=== PATIENT | male | born 1975 | race Caucasian/White ===

== ENCOUNTER 2016-12-05 23:40 | Emergency (ER) | payer BC ==
--- NOTE | 2016-12-10 08:22 | ER ---
ADMIT: 12/05/2016 RM/LOC: ER [facility] MR#: [id number] [address] [address] MARGARETH LO [address] [place] [address] Emergency Room Report SEX: M AGE: 41 : 1975 DATE: 12/05/2016 HISTORY OF PRESENT ILLNESS: A 41-year-old gentleman collapsed at work tonight. He states he started feeling dizzy, lightheaded and warmed and flushed, and then passed out while at work. He states he has had multiple episodes of this happening to him in the past. He admits to being a heavy alcohol drinker and had drank earlier on this day. He had not eaten all day. He denies any injury secondary to the fall, has no headache. He is feeling better. See T-sheet for remainder history and physical. CBC and CMP essentially within normal limits. EKG showed peaked T-waves; however, potassium is normal and CMP. His lipase was also normal. The patient is diagnosed with syncopal episode. He was placed on a 48-hour Holter monitor and instructed to follow up this week with Dr. Mckeon. DIAGNOSIS: Syncope. Star Abdi MD/ greyson JOB #: [id number] CC: Alexx Tineo MD, Attending Physician
== END 2016-12-06 01:20 | disposition home or self-care (01) ==
LOC: ER 23:40
DX: R55 Syncope and collapse (principal); F10.10 Alcohol abuse, uncomplicated

== ENCOUNTER 2017-01-04 23:33 | Emergency (ER) | payer BC ==
--- NOTE | 2017-01-06 04:09 | ER ---
ADMIT: 01/04/2017 RM/LOC: ER [facility] MR#: [id number] [address] [place], [place] [address] MARGARETH LO [address] [facility] [address] [place] [address] Emergency Room Report SEX: M AGE: 41 : 1975 DATE: 01/04/2017 TIME: 2333 hours. Please refer to my T-sheet for complete H and P. HISTORY OF PRESENT ILLNESS: Briefly, this patient is a 41-year-old, who was out in his car having trouble finding his keys, said he fell confused, the police were involved, ambulance came, picked him up, his vital signs were stable, but he just was not tracking quite well, he smelled of alcohol, he has a known history of chronic alcoholism. PHYSICAL EXAMINATION: VITAL SIGNS: Blood pressure 145/100, pulse 102, respirations 16, temp 97.2, saturation 98%. GENERAL: He is slightly anxious. HEENT: Grossly normal. LUNGS: Clear. HEART: Regular. ABDOMEN: Soft. SKIN: No rash. NEURO: He is slow, kind of confused, but nonfocal, smells of alcohol. EMERGENCY DEPARTMENT COURSE: CBC was normal. Chemistries normal. EtOH was 431. UA was normal. CT head was negative. We gave him a liter of normal saline bolus, Ativan 0.5 mg IV, thiamine 100 mg IM. He was improved. Police were in to evaluate. He will be discharged in the ER. Pending the plan with the police what they are going to do with him at this time. ASSESSMENT: 1. EtOH abuse/intoxicated. 2. Confusion secondary to EtOH abuse/intoxicated with a history of such. PLAN: Avoid alcohol. Fluids. Return if worse. Follow up with Dr. Garcia. rGegor Grijalva MD/ greyson JOB #: [id number] CC: Gregor Grijalva MD, Attending Physician
--- NOTE | 2017-01-11 12:42 | NUR ---
Received call from pt. Pt states he was just discharged from [facility]. Pt denies any needs or concerns at this time. He was at [facility] for detox.
== END 2017-01-05 01:30 | disposition home or self-care (01) ==
LOC: ER 23:33
DX: F10.129 Alcohol abuse with intoxication, unspecified (principal); F41.9 Anxiety disorder, unspecified; F32.9 Major depressive disorder, single episode, unspecified

== ENCOUNTER 2017-01-06 05:11 | Emergency (ER) | payer BC ==
--- NOTE | 2017-01-06 23:00 | ER ---
ADMIT: 01/06/2017 RM/LOC: ER [facility] MR#: [id number] [address] [facility] [address] [place], [place] [address] MARGARETH LO [address] [facility] [address] [place] [address] Emergency Room Report SEX: M AGE: 41 : 1975 DATE: 01/06/2017 TIME: 05 Please refer to my T-sheet for complete H and P. HISTORY OF PRESENT ILLNESS: Briefly, the patient is a 41-year-old, who was brought in for confusion, not acting himself at work, history of alcohol abuse. He was just seen here recently for a similar episode and his alcohol level was over 400. He states he has not drank for 4 hours. He has been at work. They thought he was not acting right, so they brought him in. He came in by ambulance. PHYSICAL EXAMINATION: VITAL SIGNS: Stable. GENERAL: No acute distress. HEENT: Grossly normal. LUNGS: Clear. HEART: Regular. ABDOMEN: Soft, nontender. SKIN: No rash. NEURO: He is alert, nonfocal, smells of alcohol. EMERGENCY DEPARTMENT COURSE: Gave him 1 L of normal saline bolus. His chemistries came back normal except potassium 3.4, CO2 of 21, AST 79. His alcohol level is 438. We will get him a cab ride home. He is alert and stable at this time. ASSESSMENT: 1. EtOH abuse. 2. Intoxicated, brought from work by ambulance. PLAN: Decrease his alcohol. Drink fluids. Outpatient rehab. Gregor Grijalva MD/ greyson JOB #: [id number] CC: Gregor Grijalva MD, Attending Physician
--- NOTE | 2017-01-09 13:33 | NUR ---
Received SAD person referral and pt triggered as a high ED user. Attempted to contact pt. No answer, voice mail message left.
--- NOTE | 2017-01-10 14:37 | NUR ---
Attempted to contact pt. No answer, voice mail message left.
== END 2017-01-06 06:40 | disposition home or self-care (01) ==
LOC: ER 05:11
DX: F10.129 Alcohol abuse with intoxication, unspecified (principal); F17.210 Nicotine dependence, cigarettes, uncomplicated

== ENCOUNTER 2017-01-24 00:34 | Emergency (ER) | payer BC ==
--- NOTE | 2017-01-24 06:53 | ER ---
ADMIT: 01/24/2017 RM/LOC: ER [facility] MR#: [id number] [address] 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 Denies any overt suicidal plan. Police did investigate, concur not an emergency police custody situation. The patient is obviously despondent because he is losing his job. Exam remarkable for obviously intoxicated male, otherwise cooperative. Denies overt suicidal plan. EtOH 381. Tox screen positive for benzodiazepine; negative for salicylate, acetaminophen. Follow up in [facility] or [facility] for further counseling. Keyshawn Roberts MD/ greyson JOB #: [id number] CC: Keyshawn Roberts MD, Attending Physician Konrad Medrano MD, Family Physician
--- NOTE | 2017-01-25 14:54 | NUR ---
Received SAD person referral. Attempted to contact pt. No answer, voice mail message left.
--- NOTE | 2017-01-26 12:24 | NUR ---
Attempted to contact pt. No answer, voice mail message left.
== END 2017-01-24 03:45 | disposition home or self-care (01) ==
LOC: ER 00:34
DX: F10.229 Alcohol dependence with intoxication, unspecified (principal); F13.20 Sedative, hypnotic or anxiolytic dependence, uncomplicated; R45.851 Suicidal ideations; F41.9 Anxiety disorder, unspecified; F32.9 Major depressive disorder, single episode, unspecified; F17.210 Nicotine dependence, cigarettes, uncomplicated; Z91.09 Other allergy status, other than to drugs and biological substances; Y90.8 Blood alcohol level of 240 mg/100 ml or more

== ENCOUNTER 2017-02-06 10:19 | Inpatient (IN) | payer BC, OTHER ==
[~2017-02-06] VITALS: Ht 175.3 cm; Wt 57.6 kg
--- NOTE | ~2017-02-06 | INDIVTXPLN ---
"PATIENT: MARGARETH LO | | [facility] UNIT #: [id number] | [address] AGE/SEX: 41 M : [birth year] | [address] | [place] [address] ADMIT/REG DATE: 02/06/17 | ROOM: A.[facility] LOC: ADTC | ADTC | Individualized Treatment Plan Date: 02/21/17 Problem Statement/Issue Identified: Client needs to learn how to make positive changes in his life, live a sober life, and find the gratitude and chloe in it. Goal: Client will learn about the changes and positivities of sobriety and recovery. Objectives/Activities to achieve goal: 1. Client is to complete the My Change Plan packet and process it with counselor. Due Date:03/01/17 Complete: Incomplete: 2. Client is to read and highlight all he can relate to in the Living with Sobriety pamphlet, and share what he learned from it with counselor. Due Date:03/02/17 Complete: Incomplete: 3. Client is to write out 10 things he found chloe in while in recovery, 10 things he's grateful for, and 10 things he hopes to get out of life while enjoying recovery, and process them with counselor. Due Date:03/02/17 Complete: Incomplete: Client signature Date Counselor signature Date Outcome/Measurement of Progress Towards Goal: Counselor's signature Date "
--- NOTE | ~2017-02-06 | TXPLANREV ---
"PATIENT: MARGARETH LO | | [facility] UNIT #: [id number] | [address] AGE/SEX: 41 M : [birth year] | [address] | [place] [phone] ADMIT/REG DATE: 02/06/17 | ROOM: A.[facility] LOC: ADTC | ADTC | Treatment Plan/Staffing Review Date: 02/21/17 Treatment plan was reviewed and determined appropriate as written: Yes Treatment plan was reviewed and the following changes/addition/deletions are necessary: Client is to continue working on treatment plan assignments. He is finishing up with Step 1, and will begin working on making positive changes in his life. Discharge plans were reviewed and determined appropriate as previously documented: No Discharge plans were reviewed and determined to be as follows: Client has an apartment, and is hoping to return to it, but he will benefit from going to sober living. 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 Other pertinent issues discussed during this staffing review include: None at this time. Staff Present: Wendi Schaeffer PRIMARY COUNSELOR: YENNIFER Hodges Client Signature Counselor Signature Date Time "
--- NOTE | ~2017-02-06 | INDIVTXPLN ---
"PATIENT: MARGARETH LO | | [facility] UNIT #: [id number] | [address] AGE/SEX: 41 M : 73 | [address] | [place] [address] ADMIT/REG DATE: 02/06/17 | ROOM: A.[facility] LOC: ADTC | ADTC | Individualized Treatment Plan Date: 02/13/17 Problem Statement/Issue Identified: Client continues to use alcohol &/or drugs despite ongoing negative consequences, and he needs to become familiar with basics of recovery as he is not new to treatment and Twelve Step Program, however he relapsed after having over a year of sobriety. Goal: Client will learn how to identify negative consequences and get back in touch with the basics of recovery. Objectives/Activities to achieve goal: 1. Client is to complete the How to Get Started packet, process it with counselor and selected pages in group. Due Date:02/18/17 Complete: Incomplete: 2. Client is to complete Step 1, process it with counselor and selected pages in group. Due Date:02/21/17 Complete: Incomplete: 3. Client is to get at least 5 names and numbers of men in recovery and share that list with counselor. Due Date:Ongoing Complete: Incomplete: Client signature Date Counselor signature Date Outcome/Measurement of Progress Towards Goal: Counselor's signature Date "
--- NOTE | ~2017-02-06 | RESCARESUM ---
"PATIENT: ALBERTO LO | | [facility] UNIT #: [id number] | [address] [facility] AGE/SEX: 41 M : 73 | [address] | [place] [phone] ADMIT/REG DATE: 02/06/17 | ROOM: [facility] LOC: ADTC | ADT | Summary of Residential Care Primary Counselor: Shi DE OLIVEIRA Date of Admission: 02/06/17 Date of Discharge: 03/06/17 Referral Source: [facility] Board Primary Care Provider Prior to Admission: Self Admitting Diagnosis: F10.20 Alcohol Use Disorder, Severe Discharge Diagnosis: Same Goals Achieved: The only goals achieved were the How to Get Started, Step 1, and he worked on making changes in his life. Continued Obstacles to Sobriety/Relapse Issues: Isolation, lack of motivation to do what is required to stay sober, not following rules and regulations of the [facility], not getting a job, not getting a sponsor, not attending AA meetings, not learning to work a program of recovery. Family Issues Addressed: Alberto and his parents were present for a family session, however, he was very quiet, and didn't share anything with them. Y Individual Therapy Y Group Therapy Y Educational Series on Substance Abuse Y Parents/Significant Others Attended Family Program N Acute Medical Problems During the Course of Treatment N Transferred to Hospital During the Course of Treatment Y Accepting of Substance Abuse Problem N Non-accepting of Substance Abuse Problem N Required Psychological or Psychiatric Consultation During the Course of Treatment Completed AA Step # 1 During This Level of Care Significant Incidences During Treatment: Alberto was not motivated to do much in treatment. He has a speech impediment, so it is difficult for him to speak, but once he got going in session, he did fine with that, but was not able to get to feelings or to why it's hard for him to stay sober. He isolates and did not reach out to anyone to be his sponsor, and if he does not learn how important that is, he will struggle. Reason For Discharge: Y Completed Residential [place] Goals and Ready For Next Level of Care N Left Tx Against Medical Advice/Treatment Goals Not Complete N Completed Residential Tx Goals But Refusing Continuing Care Recommendations N Discharged Due to Noncompliance/Treatment Goals not Completed PATIENT: ALBERTO LO | | [facility] UNIT #: [id number] | [address] [facility] AGE/SEX: 41 M : 73 | [address] | [place] [address] ADMIT/REG DATE: 02/06/17 | [facility] | [facility] | Summary of Residential Care N Discharged Earlier Than Planned Due to: Continuing Care Plan/Recommendations: N Intensive Partial Care Y Sponsor N Partial Care Y AA Meetings/NA Meetings Y Outpatient N Co-dependency Services N Therapeutic Community N [facility] [facility] [address] [facility] N Mental Health Therapy N Marriage Counseling N Other Specific Continuing Care Plan: Alberto is recommended to go to the [facility] and attend aftercare here with Man Zuniga. He is also recommended to attend AA meetings, get and call a sponsor on a regular basis and learn how to work a strong program of recovery. PRIMARY COUNSELOR: YENNIFER Hodges"
--- NOTE | ~2017-02-06 | TXPLANREV ---
"PATIENT: MARGARETH LO | | [facility] UNIT #: [id number] | [address] AGE/SEX: 41 M : 73 | [address] | [place] [phone] ADMIT/REG DATE: 02/06/17 | ROOM: A.[facility] LOC: [facility] | [facility] | Treatment Plan/Staffing Review Date: 02/28/17 Treatment plan was reviewed and determined appropriate as written: Yes Treatment plan was reviewed and the following changes/addition/deletions are necessary: Client is to continue working on treatment plan assignments. He is finishing up with a sobriety booklet and My Change Plan, and will begin working on Recovery Maintenance. Discharge plans were reviewed and determined appropriate as previously documented: Yes Discharge plans were reviewed and determined to be as follows: Client has been accepted into the [facility], is scheduled to go on Monday, 03/06 and will do aftercare here at [facility]. He will also be recommended to get and call a sponsor on a regular basis and attend AA meetings. Other pertinent issues discussed during this staffing review include: None at this time. Staff Present: Wendi Schaeffer PRIMARY COUNSELOR: YENNIFER Hodges Client Signature Counselor Signature Date Time "
--- NOTE | ~2017-02-06 | INDIVTXPLN ---
"PATIENT: MARGARETH LO | | [facility] UNIT #: [id number] | [address] AGE/SEX: 41 M : 73 | [address] | [place] [phone] ADMIT/REG DATE: 02/06/17 | ROOM: A.[facility] LOC: ADTC | ADTC | Individualized Treatment Plan Date: 03/02/17 Problem Statement/Issue Identified: Client needs to learn how to maintain his recovery. Goal: Client will learn about recovery maintenance. Objectives/Activities to achieve goal: 1. Client is to complete the Recovery Maintenance packet and process it with counselor. Due Date:03/06/17 Complete: Incomplete: Client signature Date Counselor signature Date Outcome/Measurement of Progress Towards Goal: Counselor's signature Date "
--- NOTE | ~2017-02-06 | CLPRLASSUM ---
"PATIENT: MARGARETH LO | | [facility] UNIT #: [id number] | [address] [facility] AGE/SEX: 41 M : 73 | [address] | [place] [phone] ADMIT/REG DATE: 02/06/17 | ROOM: [facility] LOC: ADTC | ADT | Client Problem List/Assessment Summary Date: 02/13/17 Problems identified by the client: Client reported he was EPC'ed, taken to [facility], possible lost his job and has been drinking for the past 10 months, after having a year of sobriety. Problems identified by significant others: Same Client's Strengths: Client believes he is empathic and caring. Problem List: Code: T Client continues to use alcohol &/or drugs despite ongoing negative consequences. Code: T Client needs to identify relapse warning signs and develop a plan to deal with them as they arise. Code: T Client needs to become familiar with basics of recovery as he is not new to treatment and Twelve Step Program, however, did not do the basics to stay sober. Code: Client needs to identify relapse warning signs and develop a plan to deal with them as they arise. Code Raphael: T: to be addressed during course of treatment O: problem noted, expected to resolve itself with abstinence--specific tx plan not required R: problem noted, will be referred upon discharge PRIMARY COUNSELOR: YENNIFER Hodges"
--- NOTE | 2017-02-06 12:57 | NUR ---
Education Note: Clients attended speaker for education Kit J.
--- NOTE | 2017-02-06 13:23 | NUR ---
ADMISSION NOTE Rights/Responsibilities: Copy given and explained to client. Signed and accepted by client. Client oriented to physical lay out of the ADTC unit, given Big Book and admission packet. A Wally was assigned. Sonny Client is a 41yr old single male. Referred by [facility]. Where he has been for the past two weeks. Lives in [place], [place]. DOC, Alcohol, last used 01/24/17, 7 drinks daily. No allergies, Nurse has his meds. Family particpation maybe. Was searched no contraband found. Initial paperwork given and guidelines gone over. Doctor has been notified.
--- NOTE | 2017-02-06 18:21 | NUR ---
Education: 1 Hour. Client attended "Feelings" lecture presented by staff.
--- NOTE | 2017-02-06 23:39 | NUR ---
tech note: client was checked into his room & seen by the DR. Client attended recreation & the NA meeting. Client was visibly shaking during the course of the evening. SE: coming to treatment.
--- NOTE | 2017-02-07 04:47 | NUR ---
tech note: client was motionless in no distress at all bed checks.
--- NOTE | 2017-02-07 15:05 | NUR ---
A.M. 1.5 hr group/ratio 09/28/ Group heard a step 1, how to get started, grief letter and discussed the importants of not glorifying as one client was confronted on this. This client was oriented to his first group and heard rules. He was quiet but attentive.
--- NOTE | 2017-02-07 15:06 | NUR ---
INITIAL SESSION 1 HR: Clt was oriented to tx plans, schedules and what to expect from tx. He has been here twice but not since 2014. He went to the for a yr, got his own apt and started drinking almost immediately. He has a good job at [employer] and isn't sure if he still has the job. He stated he did not get a sponsor, he did not go to meetings and he got bored at the . He does not want to go anywhere but back home. Clt was given the NA step 1, so he can go into more detail on it.
--- NOTE | 2017-02-07 15:50 | NUR ---
Relapse Prevention, 1.0 hours, Client attended and actively participated in relapse prevention education which focused on compulsive behaviors and relapse.
--- NOTE | 2017-02-07 16:12 | NUR ---
Tech Note: Client watched Part 2 of Predator by Aurelio Brar and had Relapse Prevention for 3:00 education. Assignment being worked on: Getting Started.
--- NOTE | 2017-02-07 16:24 | NUR ---
Education Note: Client attended Relapse Prevention presented by counselor Wendi.
--- NOTE | 2017-02-07 20:19 | NUR ---
Education: 1 hour lecture given by counselor on relapse.
--- NOTE | 2017-02-07 20:27 | NUR ---
tech note: Client went for walk for rec, participated in guided meditation and attended AA meeting
--- NOTE | 2017-02-07 23:39 | NUR ---
Tech Note: Client went on a walk for rec and attended the on unit A.A.Meeting. Client participated in Guided Meditation at 1930. SE: Minor
--- NOTE | 2017-02-08 04:58 | NUR ---
Bed note: client was in bed with eyes closed and no distress at all bed checks.
--- NOTE | 2017-02-08 07:56 | NUR ---
CASE MAN: All required info was faxed to the [facility].
--- NOTE | 2017-02-08 10:21 | NUR ---
Tech notes: Client is working on Step 1
--- NOTE | 2017-02-08 13:49 | NUR ---
Educational note: Client watched a video for education.
--- NOTE | 2017-02-08 14:00 | NUR ---
LARGE AM GROUP 4:10/1.5 HR: A large group was held to address and difuse issues on the Unit that were initially brought up but not resolved in Community meeting. Some clients are confronting bad attitudes, violations of guidelines and three clandestine relationships that have been confronted multiple times, but the individuals continue the behavior. Clients were reminded that keeping secrets or covering for others just keeps us sick and is definitely old behavior. Efforts were made to focus on solutions vs. the problem. Some appeared to understand, while others continued to blame and accuse. This client sat quietly and had difficulty articulating his thoughts when encouraged to do so.
--- NOTE | 2017-02-08 17:17 | NUR ---
SPIRITUaL EDUCATION 1 HR. Clients were oriented to the group and learned difference between spirituality and hindu. We addressed GRATITUDE today with discussion, worksheet and activity.
--- NOTE | 2017-02-08 18:24 | NUR ---
Education: 1 Hour. Client attended "Self Esteem" lecture presented by staff.
--- NOTE | 2017-02-08 23:32 | NUR ---
tech note: client went on a walk for recreation & attended the onsite NA meeting. SE: MERCEDES
--- NOTE | 2017-02-08 23:33 | NUR ---
tech note: client went on a walk for recreation & attended the onsite NA meeting. SE: NA.
--- NOTE | 2017-02-09 05:12 | NUR ---
Bed Note: Clt lay motionless in bed with eyes closed showing no distress at all bed checks.
--- NOTE | 2017-02-09 11:18 | NUR ---
Tech Note: Client participated in Spiritual Enrichment. Client stated that he is working on Step One.
--- NOTE | 2017-02-09 11:30 | NUR ---
AM GRP 1.5 HRS, Ratio 1:11/ Clt sat mostly quiet, until prompted. He was asked what happened that he relapsed over and he told the grp he didn't go to meetings and didn't get a sponsor. Clt stated if he would have listened to himself and others, after moving into his own place from the , he might still be sober.
--- NOTE | 2017-02-09 13:00 | NUR ---
FAMILY CONTACT: Elinor's parents were called. There was no answer at the time. Another call was placed to them on Mon moring. Elinor's Mom answered and explained they are still in [place] w/ [facility] and will not be back this weekend. They plan to visit next weekend.
--- NOTE | 2017-02-09 15:56 | HP ---
ADMIT: 02/06/2017 RM/LOC: Katy [facility] MR#: [id number] [id number] [place], [place] [id number] MARGARETH LO [address] [address] History and Physical SEX: M AGE: 41 : 1975 DATE OF SERVICE: This is for his admission to the residential care program at the [facility]. CHIEF COMPLAINT: Alcohol dependence, recent relapse. CLINICAL HISTORY: The patient is a 41-year-old white male, admitted to the residential care program at the [facility] for treatment of his alcohol use disorder. The patient notes that this is his fifth time in treatment and his fourth time in treatment here at the [facility]. The patient's last treatment was in November and December of 2014. Following his stay at the treatment program then, he went to the [facility] and resided there for a year. He notes things were going well while he was at the [facility]. In December of 2015, he was discharged from the [facility] and got his own apartment. He went approximately one month after being discharged from the [facility] before he relapsed. He then started drinking again and fell right back into his previous daily drinking pattern, drinking a minimum of 12-20 ounces of whiskey per day noting that he was usually buying the 1.5 L bottles and going through those every 4 to 5 days. The patient notes that his drinking had escalated out of control and he was struggling with depression. He also was having trouble at work and was afraid he was going to lose his job. He made a comment to a friend in that he was having some suicidal thoughts and was thinking about parking his vehicle on the train tracks. For that reason, he was taken to [facility]. After being evaluated at [facility] on 01/24/2017, they recommended he go to [facility]. He was admitted to the [facility] on a mental health board commitment and was there from 01/24/2017 until today, 02/06/2017. The patient notes that when he left the [facility], he also went off his psychotropic medications that he had been taking since his last discharge. When he was dismissed from treatment in December of 2014, he was dismissed on Celexa 20 mg daily, Campral 333 mg two tablets twice daily, as well as a multivitamin. He stayed on those medications while he was at the [facility], but when he left there, he quit those medications which also led to some increased difficulty with anxiety and depression. The patient comes to treatment at this time per mental health board commitment following that recent stay for psychiatric evaluation and stabilization. He readily admits that he is an alcoholic. He notes alcohol is his drug of choice. He first started drinking at age 15. His drinking was primarily binge drinking on weekends on an intermittent basis throughout high school and college, but after graduating college, at age 24, his drinking escalated to the point that he started drinking daily, drinking to intoxication, drinking to the point that he has had alcohol withdrawal seizures on at least two occasions. He also was hospitalized at [facility] in December of 2013 with acute alcoholic pancreatitis and for acute alcohol detox. He denies any other significant drug use. He notes he experimented with pot a couple of times while in college, but he has never used it since age 20. He denies any abuse of prescription drugs. His drug of choice has always been alcohol. He is readmitted to the residential care program at this time for treatment of his alcohol use disorder, noting that this will be his fifth time in treatment. ADMIT: 02/06/2017 RM/LOC: A.511 [facility] MR#: [id number] [address] [facility] [address] [place] [id number] MARGARETH LO [address] [place] [address] History and Physical SEX: M AGE: 41 : 1975 PAST MEDICAL HISTORY: Recent hospitalizations; was hospitalized at [facility] from 01/24/2017 through 02/06/2017. He has had three trips to the ER in the last 6 months; two occurred after he had episodes of collapsing at work. It was these work-related events that placed his job in jeopardy. He has had no other recent hospitalizations. Previous operations, none. CURRENT MEDICATIONS: Include: 1. Seroquel 100 mg one tablet at bedtime and 25 mg every 6 hours p.r.n. anxiety. 2. Naltrexone 25 mg one tablet daily. 3. Zoloft 100 mg daily. ALLERGIES: HE HAS HAD A PREVIOUS REACTION TO BENZODIAZEPINES. MEDICAL ILLNESSES: Other than for his alcohol use disorder and chronic difficulty with depression, he denies any other major health issues. He does note that he has a speech impairment, has had trouble with stuttering since childhood. He is noted to be a smoker, typically smoking about a pack per day. REVIEW OF SYSTEMS: A brief 12-point review of systems is otherwise negative. SOCIAL HISTORY: The patient lives alone. He has been living in his own apartment. He smokes about a pack of cigarettes per day. He is a college graduate with a degree in Business and Accounting. He is single. He has never been . He has no children. He lives in a very isolated situation noting that he has very few friends and does not interact much with his coworkers. FAMILY HISTORY: Negative for substance abuse or alcoholism. There is a family history of hypertension. A paternal grandfather was noted to be an alcoholic, and there are some maternal uncles who have had alcohol issues as well. Remainder of his past history and review of systems is negative. PHYSICAL EXAMINATION: VITAL SIGNS: Temp is 95.8, pulse is 91, respirations 20, blood pressure 137/72, height is 5 feet 9 inches, his weight is 114 pounds. GENERAL: The patient is a 41-year-old male, who appears his stated age. He is in no acute distress. He does have a noticeable stutter. HEENT: Reveals his pupils to be equal and reactive. Sclerae nonicteric. Conjunctivae noninflamed. Nose and throat are noninflamed. Oropharynx normal. NECK: Supple. Thyroid not enlarged. No cervical adenopathy. LUNGS: Clear. HEART: Regular rhythm without murmur. ABDOMEN: Soft, nontender. No masses or organomegaly. Bowel sounds ADMIT: 02/06/2017 RM/LOC: Katy [facility] MR#: [id number] [address] [id number] MARGARETH LO [address] [place] [address] History and Physical SEX: M AGE: 41 : 1975 normoactive. GENITALIA: Normal male. EXTREMITIES: Normal to gross exam with no clubbing or cyanosis. NEUROLOGICAL: He is noted to have no focal deficit. Balance and gait are normal. Cranial nerves II through XII are grossly intact. He is noted to have significant tremor as well as his speech impairment. MENTAL STATUS EXAMINATION: His affect is somewhat flat. His mood is depressed. His attitude is very guarded. He has no bizarre ideation. No delusions. He denies any suicidal thoughts at this time. His memory is intact. He appears to be of average intelligence. He is oriented x3. Insight is limited. Judgment is guarded. ASSESSMENT AT THE TIME OF ADMISSION: 1. Alcohol use disorder, severe. 2. Tobacco use disorder, moderate. 3. Major depressive disorder, recurrent. 4. Speech impairment/stuttering. 5. Medication-induced tremor. PLAN: Plan is to admit the patient to the residential care program with a tentative discharge date of 03/06/2017. Upon completion of treatment, he would like to go back to the [facility] again. He did well in his previous [facility]. He will need to continue on his current psychotropic medications and will need long-term mental health counseling as well. Dmitriy Pagan MD/ greyson JOB #: [id number] CC: Dmitriy Pagan, Attending Physician UNKNOWN, Family Physician
--- NOTE | 2017-02-09 17:06 | NUR ---
step education 1 hr/ Focus was on step 6 and looking at character defects and letting God remove them. Each person took some time looking at a list of character defects and wrote out answers to a set of questions and then shared and discussed. This client participated. He shared some defects are anxiety, and depression and he is working on this.
--- NOTE | 2017-02-09 19:16 | NUR ---
Education 1 Hour: Client heard a presentation on marijuana.
--- NOTE | 2017-02-09 22:13 | NUR ---
Education 1 HR: Clt watched video by Nelly "Hari Gann" with staff present.
--- NOTE | 2017-02-09 22:43 | NUR ---
Tech Note: Clt walked for recreation, attended GM and onsite AA mtg. SE was AA mtg
--- NOTE | 2017-02-10 04:46 | NUR ---
Bed Note: Clt lay motionless in bed with eyes closed showing no distress at all bed checks.
--- NOTE | 2017-02-10 11:30 | NUR ---
GROUP 1.5 HRS. 1:11 Group discussion included step 1 assignment to identify how betrayed values (pg. 10) and effects on others (pg. 11) as well as feelings letters and sharing damage to relationships. This client was mostly quiet but did relate when prompted.
--- NOTE | 2017-02-10 16:30 | NUR ---
Tech Note: Client listened to speaker Daniel Arroyo and is working on Step 1.
--- NOTE | 2017-02-10 21:21 | NUR ---
Tech note: client watched TV and movies. Walked to optional offiste AA meeting. SE:speaker
--- NOTE | 2017-02-11 05:00 | NUR ---
Bed note: Client was in bed with eyes closed and no distress at all bed checks.
--- NOTE | 2017-02-11 09:33 | NUR ---
IS 1 HR: Elinor shared his paper about why and what he wants to be here and get out of tx, as assigned last morning. He hopes to see how he has to always remember he's an alcoholic, and even with some sober time, can't go back to drinking. He also knows he needs to continue going to AA meetings and calling a sponsor. He was asked if he really believed he would be able to drink a couple beers then quit when he started drinking again. He stated probably not, but he was hoping he could, and thought if he could, he would have everything. A good job, a place of his own and the ability to drink socially. Today he knows differently.
--- NOTE | 2017-02-11 12:20 | NUR ---
TRAUMA NOTE: Clt denies any trauma.
--- NOTE | 2017-02-11 16:55 | NUR ---
Tech Note: Client attended the A.A.Meeting at [address] [place] [address] and is working on Step1. Client also went on a walk for rec today
--- NOTE | 2017-02-11 23:04 | NUR ---
Tech note: Client walked around the park a few times for rec. Client walked to an off site AA meeting. SE: Meeting
--- NOTE | 2017-02-12 05:03 | NUR ---
Bed note: client was in bed with eyes closed and no distress at all bed checks.
--- NOTE | 2017-02-12 15:36 | NUR ---
TECH NOTE: Client participated in big book study, attended restorationist, completed chores and watched tv/movies.
--- NOTE | 2017-02-12 23:42 | NUR ---
tech note: Client is having trouble showing up on time for his 1800 medication. Client participated in Community Clean & watched tv. SE: rastafari.
--- NOTE | 2017-02-13 04:46 | NUR ---
Bed note: client was in bed with eyes closed and no distress at all bed checks.
--- NOTE | 2017-02-13 15:18 | NUR ---
Tech note: Client is working on Step 1
--- NOTE | 2017-02-13 23:06 | NUR ---
Tech Note: Clt walked for recreation and attended onsite NA mtg. Watched tv and movies. SE was NA mtg
--- NOTE | 2017-02-14 04:46 | NUR ---
Bed Note: Clt lay motionless in bed with eyes closed showing no distress at all bed checks.
--- NOTE | 2017-02-14 15:39 | NUR ---
Tech Note: Client participated in light stretching for morning exercise and went on an outdoor walk in the afternoon. Client stated that he is working on writing Feelings Letters.
--- NOTE | 2017-02-14 15:48 | NUR ---
Education 1 Hour: Client watched the video, "How to Sabotage your Treatment."
--- NOTE | 2017-02-14 23:14 | NUR ---
Tech note: Client walked a mile for rec, did guided meditation and attended an onsite AA meeting. SE; AA meeting
--- NOTE | 2017-02-15 04:24 | NUR ---
Education: 1 Hour. Client attended presentation by staff on "Step 1."
--- NOTE | 2017-02-15 05:20 | NUR ---
Bed note: Client was in bed with eyes closed and in no apparent distress at all bed checks.
--- NOTE | 2017-02-15 09:47 | NUR ---
Tech notes: Client is working on Step 1
--- NOTE | 2017-02-15 12:11 | NUR ---
AM GROUP 9:09/18.5 HR: Client and peers ORIENTED A NEW MEMBER TO GROUP PURPOSE, GUIDELINES, GOALS AND OBJECTIVES. Client remained attentive but did not take any personal risks.
--- NOTE | 2017-02-15 13:31 | NUR ---
Education note: Client attend educational speaker Gloria Valentine
--- NOTE | 2017-02-15 16:29 | NUR ---
SPIRITUAL EDUCATION 1 HR. Newcomers were oriented to group. Todays topic was addicted self vs spiritual self which we discussed first then they depicted the contrast in artwork. The ones that finished first wrote letters to welcome anonymous newcomers.
--- NOTE | 2017-02-15 22:55 | NUR ---
Tech note : Client played catch phrase for rec and attended an onsite NA meeting. SE; Spirituality
--- NOTE | 2017-02-16 04:44 | NUR ---
Bed note: client was in bed with eyes closed and no distress at all bed checks.
--- NOTE | 2017-02-16 10:59 | NUR ---
Tech Note : Client participated in Spiritual Enrichment. Client stated that he is working on Step One.
--- NOTE | 2017-02-16 11:30 | NUR ---
Group 1.5 hrs. Ratio 1:9/ Topics were orientation for new clients to group, rules and goals. One client shared feeling packet.others gave feed back and other feelings were discussed. Client shared that while he was in longterm house he remained sober. He began drinking again when he got his own apartment. When asked what he would do different infuture he responded with get a sponser and go to meetings.
--- NOTE | 2017-02-16 13:10 | NUR ---
Education 1 Hour: Client heard a recovery speaker who addressed the subject of hope.
--- NOTE | 2017-02-16 17:00 | NUR ---
FAMILY EDUCATION 3 HRS. Client attended alone and took part in the discussion on the disease concept.
--- NOTE | 2017-02-16 20:36 | NUR ---
Education: 1 Hour. Client attended Felix Alfred video "Step 5."
--- NOTE | 2017-02-16 22:59 | NUR ---
Client went on a walk for rec, participated in guided meditation, and attended the on unit A.A.Meeting. SE: A.A.Meeting
--- NOTE | 2017-02-17 05:29 | NUR ---
Bed Note: Client was in bed and motionless at all bed checks.
--- NOTE | 2017-02-17 10:50 | NUR ---
IS 1 HR: We processed vanessa's BPS. We discussed his previous tx attempts, what worked and what his addiction convinced him of, once he gave in and started drinking again. He advised it got to the point that he started taking alcohol to work w/ him, and he ended up getting taken to the hospital 3 times via ambulance. He isn't sure he has a job, but asked for permission to contact them today. Sevennelia is still working on NA Step 1.
--- NOTE | 2017-02-17 12:00 | NUR ---
GROUP 1.5 HR/ 11:1 Clients went over new rules for new member, and was attentive as peers shared.
--- NOTE | 2017-02-17 13:11 | NUR ---
PEER REVIEWS 1.5 HRS: Clt participated in peer review process and was able to give open, honest feedback to those receiving a review.
--- NOTE | 2017-02-17 14:29 | NUR ---
Tech Note: Client watched Recovery Issues Part 3. Is working on Step 1 and Spirituality.
--- NOTE | 2017-02-17 20:21 | NUR ---
Tech note: Clt read guidelines as a grp, attended optional AA mtg and watched tv/movies. Used phone SE was lost job
--- NOTE | 2017-02-18 05:20 | NUR ---
BED NOTE: Client was in bed, motionless with eyes closed all bed checks.
--- NOTE | 2017-02-18 11:48 | NUR ---
IS 1 HR: Clt processed his How to Get Started pkt. He struggled with the two pages on asking for help. He stated he didn't reach out to anyone when he started drinking, and in fact, completely isolated himself. He came up w/ 3 people he can call, but none are of men here in . He heard it's important to reach out to healthy men here. He stated he called his job, but they told him he didn't have a job.
--- NOTE | 2017-02-18 16:10 | NUR ---
Medication Note: Client took prn ibuprophen for H/A rated at 4.
--- NOTE | 2017-02-18 16:55 | NUR ---
Tech Note: Client attended NA Panel today and is working on Step 1 and Spirituality.
--- NOTE | 2017-02-18 20:17 | NUR ---
TECH NOTE: Client participated in beads for REC, attended offsite AA meeting and watched TV/Movies. SE: nap
--- NOTE | 2017-02-19 04:56 | NUR ---
Bed Note: Clt lay motionless in bed with eyes closed showing no distress at all bed checks.
--- NOTE | 2017-02-19 16:16 | NUR ---
Tech Note: Client is working on Spirituality. He went to [facility] and had visitors.
--- NOTE | 2017-02-19 23:01 | NUR ---
Tech Note: Client attended the on unit A.A.Panel. SE: A.A.Panel/Visitation
--- NOTE | 2017-02-20 04:41 | NUR ---
Client was in bed and motionless at all bed checks.
--- NOTE | 2017-02-20 09:58 | NUR ---
Tech notes: Client is working on Step 1
--- NOTE | 2017-02-20 12:00 | NUR ---
GROUP 1.5 HR/ 10:1 Client did share his GS packet, 1/2 way through peers were involved in questions and feedback and relating. Later in group client was asked if was done with GS and he first said yes, but when asked by counselor he said he had 1 page left to share. Client told about his past time at [facility] and staying clean, but he never developed any social support so when moved out was isolated and "was tired of everything" so quit meetings and did relapse. He hopes he can go back to his appartment but it seems this would set up another relapse. He said others heard him make suicidal remarks 2x, he had been drinking daily and at work, and his REENA was .5 because his liver wasn't detoxing. When asked if he likes doing sober activities he did say yes. He said he felt he "earned a break from it" referring working the program/meetings. He said he is one that helps others, never says no, is too reserved/quiet and too nice. Peers encouraged him offering him their friendship.
--- NOTE | 2017-02-20 13:37 | NUR ---
Education note: Client attended educational speaker Johanna on Tobacco
--- NOTE | 2017-02-20 18:18 | NUR ---
EDUCATION 1 HR: Counselor gave lecture on forgiveness.
--- NOTE | 2017-02-20 21:00 | NUR ---
FAMILY EDUCATION 3 hrs., GROUP 2 HRS. 1:5 Client attended alone and took part in the discussion on the family roles, codependency and detachment. He identified with lost child. Client was mostly quiet but appeared attentive.
--- NOTE | 2017-02-20 23:38 | NUR ---
tech note: client attended Family Session. SE: Family.
--- NOTE | 2017-02-21 05:38 | NUR ---
BED NOTE: Client was in bed, motionless with eyes closed all bed checks.
--- NOTE | 2017-02-21 14:30 | NUR ---
A.M. 1.5 hr res group/ratio 1:8/ Group heard 2 how to get started assignments and a letter to addiction. Discussed the importants of telling old friends you no longer use instead of I cant right now. This client was quiet until called on and then he shared a brief statment.
--- NOTE | 2017-02-21 15:00 | NUR ---
Relapse Prevention, 1.0 hours, Client attended and actively participated in relapse prevention education which focused on completing a relapse quiz and discussion.
--- NOTE | 2017-02-21 16:40 | NUR ---
Tech Note: Client participated in light stretching for morning exercise and went on an outdoor walk in the afternoon. Client stated that he is working on, "Spirituality" and Step One.
--- NOTE | 2017-02-21 17:23 | NUR ---
Education 1 Hour: Client heard a presentation on Sexually Transmitted Disease.
--- NOTE | 2017-02-21 23:36 | NUR ---
TECH NOTE: Client Attended Alumni meeting, played Catch Phrase for REC, participated in Guided Meditation, and attended AA meeting. SE: AA meeting
--- NOTE | 2017-02-22 04:36 | NUR ---
Bed Note: Client was in bed and motionless at all bed checks.
--- NOTE | 2017-02-22 11:02 | NUR ---
Tech Notes: Client is working on Step 1
--- NOTE | 2017-02-22 11:30 | NUR ---
GROUP 1.5 HRS. 1:11 Client participated in orienting new peer to purpose and rules of group. Group discussion included grief and loss of loved ones including miscarriages for a couple of peers. This client was quiet.
--- NOTE | 2017-02-22 12:53 | NUR ---
Education Note: Client attended education by [facility]
--- NOTE | 2017-02-22 18:21 | NUR ---
EDUCATION 1HR: Counselor gave presentation on Unresolved Anger.
--- NOTE | 2017-02-22 18:52 | NUR ---
SPIRITUAL EDUCATION 1 HR. ORIENTED NEWCOMERS, AND TODAYS TOPIC WAS THE SPIRITUAL QUESTION GAME DESIGNED TO START PEOPLE THINKING ALONG SPIRITUAL LINES AND GET MORE COMFORTABLE DISCUSSING IT.
--- NOTE | 2017-02-22 22:34 | NUR ---
TECH NOTE: Client went on a walk for REC and attended NA meeting. SE: spirituality
--- NOTE | 2017-02-23 04:49 | NUR ---
BED NOTE: Client was in bed, motionless with eyes closed all three bed checks.
--- NOTE | 2017-02-23 12:38 | NUR ---
Group 1.5 Hr Ratio 1:12/Topics today were orientating a new member to group rules and goals, a step one and the difference between drugs and alcohol. Client shared a group rule ansd did not say a thing after that.
--- NOTE | 2017-02-23 14:00 | NUR ---
IS 1 HR: Elinor shared from his Step 1, and did a good job on it, but isn't done yet, so will finish and we will continue to process and give him pages to share. We did discuss him going to the or some type of sober living, and he agreed it will be good for him. We also discussed him isolating and how important it will be for him to put himself out there. He is directed to co-chair the AA meeting edith, and a note will be sent for staff to know.
--- NOTE | 2017-02-23 14:02 | NUR ---
Tech Note: Clt went on walk, watched "How to Sabotage Your Treatment" and is working on Spirituality.
--- NOTE | 2017-02-23 16:20 | NUR ---
Step education 1 hr/ Focus of education was on step 8 making amends. Each person wrote down answers of a set of questions on step 8 and then we discussed. This person participated and on the question do I have a relationship that needs healing? He said yes with his parents and sisters.
--- NOTE | 2017-02-23 19:57 | NUR ---
Education Note 1 HR: Clt watched video by Aurelio Brar entitled "My Attitude".
--- NOTE | 2017-02-23 22:58 | NUR ---
Tech Note: Client Participated in guided meditation and attended the on site A.A.Meeting. Client played a game for rec. SE: A.A.Meeting
--- NOTE | 2017-02-24 05:04 | NUR ---
Bed Note: Client was in bed and motionless at all bed checks.
--- NOTE | 2017-02-24 13:00 | NUR ---
PEER REVIEWS 1.5 HRS: Clt participated in peer review process and received his own. He heard he is quiet, needs to get out of his comfort zone, is reserved, isolated, has brooks, trust issues, is a loner, has a lot ot say but doesn't know how to say it, has low self-worth. He felt sad and glad.
--- NOTE | 2017-02-24 13:05 | NUR ---
Group 1.5 Hr Ratio 1:10/Topics today were a getting Started packet and talked about denial about being an alcoholic. Client shared he helped chair the NA meeting last night andpeers said he did a good job. Client had to be prodded to share.
--- NOTE | 2017-02-24 13:31 | NUR ---
Tech Note: Clt joined group on outside walk and watched "Marijuana" by Aurelio Brar. Clt is working on Spirituality.
--- NOTE | 2017-02-24 21:15 | NUR ---
Tech Note: Clt read guidelines with grp, attended offsite AA mtg, used phone and watched tv/movies. SE was peer review
--- NOTE | 2017-02-25 04:07 | NUR ---
Bed Note: Clt lay motionless in bed with eyes closed showing no distress at all bed checks.
--- NOTE | 2017-02-25 14:28 | NUR ---
FAMILY SESSION 1 HR: Clt and his parents were present. Clt sat mostly quiet, only nodding in agreement, when sharing with his parents what he's working on. His Mom brought up that when he was on campral he did better at staying sober, so asked if we are able to get him back on it. He heard he needs to fill otu a self-care sheet. Clt agrees he needs to go to the .
--- NOTE | 2017-02-25 16:51 | NUR ---
Tech Note: Client attended A.A.Meeting at [facility] [place] 2[place] and is working on Step1 and Spirituality. Client had a session with his counselor and also had a visit today.
--- NOTE | 2017-02-25 23:53 | NUR ---
Tech note: Client played catch phase for rec, had cake to celebrate a peers birthday and walked to an offsite AA meeting. SE: Family
--- NOTE | 2017-02-26 04:38 | NUR ---
tech note: client was motionless in no distress at all bed checks.
--- NOTE | 2017-02-26 16:25 | NUR ---
Tech Note: Client working on his Change Plan.
--- NOTE | 2017-02-26 22:36 | NUR ---
TECH NOTE: Client attended AA panel speaker, participated in community clean and watched TV/movies. SE: supper
--- NOTE | 2017-02-27 05:35 | NUR ---
tech note: client was motionless in no distress at all bed checks.
--- NOTE | 2017-02-27 10:46 | NUR ---
Tech Notes: Client is working on Change plan
--- NOTE | 2017-02-27 11:30 | NUR ---
Experiential Group 1.5 hr/ All clients participated in family sculpturing to gain insight into family dynamics/roles by playing roles, giving feedback and relating. This client was involved and attentive.
--- NOTE | 2017-02-27 14:04 | NUR ---
Education Note: Client attended educational speaker Andi Nguyen
--- NOTE | 2017-02-27 16:00 | NUR ---
Recovery 101 1 hr/ Clients all were asked to share with each other how to get the most out of treatment and also those that went through Family Program shared about feelings letters are powerful. This client was attentive and shared.
--- NOTE | 2017-02-27 18:50 | NUR ---
Education 1Hr: Clt attended lecture on Adult Chidren of Alcoholics given by counselor.
--- NOTE | 2017-02-27 22:49 | NUR ---
Tech Note: Client played a game for rec and attended the on unit N.A.Meeting. SE: Speaker
--- NOTE | 2017-02-28 04:13 | NUR ---
Bed Note: Clt lay motionless in bed with eyes closed showing no distress at all bed checks.
--- NOTE | 2017-02-28 15:12 | NUR ---
Tech Note: Client watched "The Disease of Alcoholism" and is working on his Change Plan.
--- NOTE | 2017-02-28 15:13 | NUR ---
Relapse Prevention, 1.0 hours, Client attended and actively participated in relapse prevention which focused on avoiding relapse and relapse prevention plan.
--- NOTE | 2017-02-28 15:46 | NUR ---
Referral note: Both the [facility] & were called concerning placement after dicharge. Hali Watson, student
--- NOTE | 2017-02-28 16:58 | NUR ---
Morning Group, / ratio, 1.5 hours, Client attended and actively participated in group discussion. Client listened during group.
--- NOTE | 2017-02-28 18:59 | NUR ---
Education 1HR: Clt attended lecture given by counselor on co-dependency.
--- NOTE | 2017-02-28 22:36 | NUR ---
Tech note : Client spent rec making welcome letters for new clients and father's day cards. Client participated in guided meditation and attended an onsite AA meeting. SE; Was accepted to the [facility]
--- NOTE | 2017-03-01 04:05 | NUR ---
Bed Note: Clt lay motionless in bed with eyes closed showing no distress at all bed checks.
--- NOTE | 2017-03-01 10:04 | NUR ---
Tech Note: Client is working on Change plan
--- NOTE | 2017-03-01 13:20 | NUR ---
Education notes: Client attended educational speaker Morgan Melgoza
--- NOTE | 2017-03-01 14:50 | NUR ---
AM RES GROUP 1.5 HR. RATIO 09/27. Topics today were assignments shared, forgiving self, spirituality, and individual issues. This client appeared to be attentive but did not choose to share. I noticed some of the clients were joking and he commented about it without stuttering.
--- NOTE | 2017-03-01 17:23 | NUR ---
SPIRITUAL EDUCATION 1 HR. TOpics were orienting newcomers and then we talked about what a vision board and mission statement are and they created their own after filling out a worksheet on them.
--- NOTE | 2017-03-01 18:21 | NUR ---
Education: 1 Hour: Client attended "Disease Concept Lecture" presented by staff.
--- NOTE | 2017-03-01 22:51 | NUR ---
Tech note: Client went outside for rec and played catch phrase. Client went to an onsite NA meeting and celebrated a peers birthday with icecream and cupcakes. SE; Group
--- NOTE | 2017-03-02 04:04 | NUR ---
tech note: client was motionless in no distress at all bed checks.
--- NOTE | 2017-03-02 12:38 | NUR ---
Group 1.5 Hr Ratio 1:12/Topics today were orientating a new client to group rules and goals. Acceptance was also talked about. Client shared a group rule but was very quiet otherwise.
--- NOTE | 2017-03-02 15:00 | NUR ---
IS 1 HR: We brought up about elinor saying he didn't get picked on as a kid, when his Dad was here last Sat and said the opposite. Elinor stated there were only a couple kids who did it, so we discussed how just one or two can hurt so badly that it causes isolation, anxiety, etc. He admitted to having both of these, so we discussed him doing EMDR the past 2 tx attempts and how he can still use what he learned. Elinor heard he's going to have to learn to take care of himself and his feelings and thoughts, or he won't stay sober.
--- NOTE | 2017-03-02 15:35 | NUR ---
Tech Note: Client participated in Spiritual Enrichment in the morning and went for an outdoor walk in the afternoon. Client stated that he is working on, "My Change Plan."
--- NOTE | 2017-03-02 16:08 | NUR ---
Step education 1 hr/ Focus was on step 10 "Continued to take personal inventory and when we were wrong, promptly admitted it." Each person completed a set of questions and then we discussed. At the end they took turns reading out of the big book. This client participated.
--- NOTE | 2017-03-02 19:29 | NUR ---
Eduction: 1 Hour.Client attended Aurelio Brar video "My Behavior."
--- NOTE | 2017-03-02 19:45 | NUR ---
Education: 1 Hour.Client attended Aurelio Brar video "My Behavior."
--- NOTE | 2017-03-02 23:00 | NUR ---
Tech note: Client went outside and the group played 2 truths and a lie then went for a short walk. Client participated in guided meditation and went to an onsite AA meeting. SE; SAVANNA salazar
--- NOTE | 2017-03-03 05:30 | NUR ---
Bed note: Client was motionless with eyes closed at all bed checks.
--- NOTE | 2017-03-03 12:00 | NUR ---
Group 1.5 Hr Ratio 1:11/Topics today were orientating a new member to group rules and goals. Three Getting Started assignments were shared. Client shared a group rule but was quiet the rest of group.
--- NOTE | 2017-03-03 13:00 | NUR ---
PEER REVIEWS 1 HR: Clt participated in peer review process and was able to give open and honest feedback to those receiving a review.
--- NOTE | 2017-03-03 13:30 | NUR ---
Tech Note: Client went on group walk and watched "The Sound of Silence". Clt working on his Change Plan.
--- NOTE | 2017-03-03 22:41 | NUR ---
Tech note: client watched tv and movies. Attended optional offsite AA mtg SE:group
--- NOTE | 2017-03-04 04:21 | NUR ---
Bed note: Client was in bed with eye closed and no distress at all bed checks.
--- NOTE | 2017-03-04 15:40 | NUR ---
FINAL SESSION 1 HR: Clt heard he has an appt w/ Man on 03/08. He is not nervous about going to the [facility], and is actually looking forward to it. He stated his mom isn't quite as confident it's a good fit. He completed the survey, we did his continued care plan and he was given a coin and completed thru tx.
--- NOTE | 2017-03-04 16:26 | NUR ---
Tech Note: Client watched a video, "Spiritual Awakening" by Gautam Gimenez in the morning. Client stated that he is working on, "My Change Plan" and "Recovery Maintenance."
--- NOTE | 2017-03-04 20:36 | NUR ---
TECH NOTE: Client played Gestures for REC, attended off site AA meeting and watched TV/movies. SE: nap
--- NOTE | 2017-03-05 04:12 | NUR ---
BED NOTE: Client was in bed, motionless with eyes closed all bed checks.
--- NOTE | 2017-03-05 16:33 | NUR ---
Tech Note: Client attended gnosticist and went for an optional outdoor walk. Client stated that he is working on, "My Change Plan." Client received visitors.
--- NOTE | 2017-03-05 22:47 | NUR ---
Tech note: Client listened to the E,S & H of a member of the AA panel that gave up his time to spend with us this evening. Client watched movies and participated in community clean.
--- NOTE | 2017-03-06 04:38 | NUR ---
Bed Note: Clt lay motionless in bed with eyes closed showing no distress at all bed checks.
--- NOTE | 2017-03-06 08:48 | NUR ---
DISCHARGE NOTE Client left tx with ride to [facility], all personal belongings were sent with. Discharge instructions gone over and copy given
--- NOTE | 2017-03-07 10:26 | NUR ---
CASE MAN: All required info was faxed to the [facility] and [employer].
--- NOTE | 2017-04-11 12:51 | DS ---
ADMIT: 02/06/2017 RM/LOC: [facility] MR#: [id number] [id number] [place], [place] [id number] MARGARETH LO [address] [address] General Discharge Summary SEX: M AGE: 41 : 1975 ADMISSION DATE: 02/06/2017 DISCHARGE DATE: 03/06/2017 ADMITTING DIAGNOSIS: As per history and physical. FINAL DIAGNOSES: 1. Alcohol use disorder, severe. 2. Tobacco use disorder, moderate. 3. Major depressive disorder, recurrent. 4. Speech impairment. 5. Medication-induced tremor. COMPLICATIONS: None. OPERATIONS: None. CLINICAL HISTORY: The patient is a 41-year-old white male admitted to the residential care program at the [facility] for treatment of his alcohol use disorder. The patient notes that this is his fifth time in treatment and fourth time in treatment here at the [facility]. For details of his past history and prior treatment, please see clinical history portion of his dictated history and physical. Please also see dictated history and physical for pertinent physical exam findings. Laboratory and x-ray summary from this admission, none indicated and none performed. HOSPITAL COURSE: The patient was admitted and assigned to his primary counselor, Shi Gomez. He remained in the treatment program from 02/06/2017 until 03/06/2017. While in treatment, he participated in individual therapy and group therapy. He was also given the educational series on substance abuse and worked on many of these assignments. While in treatment, he participated in the family portion of his program. His parents participated in one family group session as well. While in treatment, he was accepting of his substance abuse problem and worked well with the staff in both individual and group settings. While in treatment, he worked on identifying obstacles to his sobriety and potential relapse triggers. He worked on making changes in his life. He was able to recognize his powerlessness over alcohol. He was able to complete step one of AA during this level of care. While in treatment, he seemed to be poorly motivated at times. He was not motivated to do much. He has a speech impairment which made it difficult for him to speak in group settings, but once he got going in private sessions, he did fine. While in treatment, he tended to isolate from the other residents. He did not want to reach out and establish contact with a new sponsor. However, ultimately, he did complete his residential treatment goals and was felt to be ready for the next level of care. It was recommended that he go to the [facility], [address], and attend aftercare here at [facility]. He is to work with Man Zuniga MS, LMHP, LADC, CSAT. He is to attend 3 to 5 AA meetings per week and maintain regular contact with the ADMIT: 02/06/2017 RM/LOC: [facility] MR#: [id number] [address] [place] [id number] MARGARETH LO [address] [place] [address] General Discharge Summary SEX: M AGE: 41 : 1975 sponsor. He will do both weekly individual and group sessions as an outpatient. He is encouraged to reside at the [facility] for a minimum of 6 months. CONDITION AT DISCHARGE: Stable and improved. PROGNOSIS: Guarded. DISCHARGE MEDICATIONS: His medications at discharge were to include: 1. Zoloft 100 mg daily. 2. Seroquel 100 mg at bedtime. 3. Naltrexone 25 mg one daily. 4. Multivitamin 1 daily. 5. Mhlp-ruo-wkzlqiz thiamine 100 mg daily. Dmitriy Pagan MD/ greyson JOB #: [id number] CC: Dmitriy Pagan MD, Attending Physician
== END 2017-03-06 07:30 | disposition home or self-care (01) | DRG 895 ==
LOC: ADTC 10:19
PROVIDERS: ADMIT Family Medicine
PROC: HZ34ZZZ Individual Counseling for Substance Abuse Treatment, Interpersonal (ICD-10-PCS; principal; 2017-02-06)
PROC: HZ43ZZZ Group Counseling for Substance Abuse Treatment, 12-Step (ICD-10-PCS; principal; 2017-02-06)
DX: F10.20 Alcohol dependence, uncomplicated (principal); F33.9 Major depressive disorder, recurrent, unspecified; F80.81 Childhood onset fluency disorder; G25.1 Drug-induced tremor; F17.210 Nicotine dependence, cigarettes, uncomplicated; Z81.1 Family history of alcohol abuse and dependence